=== PATIENT | male | born 1985 | race Caucasian/White ===

== ENCOUNTER 2020-09-04 06:57 | Emergency (ER) | payer MEDICAID ==
[~2020-09-04] VITALS: Ht 175.3 cm; Wt 75.0 kg
[2020-09-04 07:00] VITALS: BP 132/69
--- NOTE | 2020-09-04 07:33 | NUR ---
Patient given discharge instructions and Rx, they have confirmed that they understand the instructions. Patient ambulatory with steady gait.
== END 2020-09-04 07:33 | disposition home or self-care (01) ==
LOC: ED 07:26
DX: K02.9 Dental caries, unspecified (principal)
CPT/HCPCS: 99283